=== PATIENT | female | born 1945 | race Caucasian/White ===

== ENCOUNTER 2018-03-29 17:03 | Emergency (ER) | payer OTHER, BC ==
[~2018-03-29] VITALS: Ht 154.9 cm; Wt 47.2 kg
[~2018-03-29 17:03] MED LIST: KLO.5; NALT50TA4; NEU100; PRO10
[2018-03-29 17:06] VITALS: BP_SYST 188
[2018-03-29 17:40] VITALS: BP_SYST 160
== END 2018-03-29 17:40 | disposition home or self-care (01) ==
LOC: SED 17:03
DX: J40 Bronchitis, not specified as acute or chronic (principal); R03.0 Elevated blood-pressure reading, without diagnosis of hypertension; Z85.72 Personal history of non-Hodgkin lymphomas; Z79.899 Other long term (current) drug therapy
CPT/HCPCS: 93005; 99283